=== PATIENT | male | born 1965 | race Caucasian/White ===

== ENCOUNTER 2017-07-21 13:18 | Emergency (ER) | payer MEDICAID ==
[2017-07-21] MEDS: HYDROCODONE/APAP (5/325) TAB PO (14:57)
[2017-07-21] MEDS: DIPHTH/TET/ACEL PERTUSS (ADULT) 0.5 ML VIAL IM* (14:57)
[2017-07-21] MEDS: LIDOCAINE 1% (MDV) 20 ML INJ SC (15:15)
[2017-07-21] MEDS: LIDOCAINE 1% (MPF) 30 ML INJ INJ (15:30)
== END 2017-07-21 16:15 | disposition home or self-care (01) ==
LOC: FTE 13:18
DX: S01.412A Laceration without foreign body of left cheek and temporomandibular area, initial encounter (principal); W26.8XXA Contact with other sharp object(s), not elsewhere classified, initial encounter; Y92.9 Unspecified place or not applicable; Z23 Encounter for immunization
CPT/HCPCS: 12013; 90471; 90715; 99284-25